=== PATIENT | female | born 1970 | race Caucasian/White ===

== ENCOUNTER 2019-04-05 14:57 | Outpatient (CLI) | payer BC, SELFPAY ==
--- NOTE | 2019-04-05 15:50 | DI.MAMMO_ITS ---
SYMPTOMS/DIAGNOSIS: SCREENING, Z12.31 BILATERAL SCREENING MAMMOGRAM: Mammograms were interpreted according to the usual protocol including computer analysis with CAD system, tomosynthesis and C view imaging. Comparison is made with 2018. The breasts are composed of heterogeneously dense fibroglandular tissue, breast density category C. No suspicious masses or suspicious microcalcifications are seen. There has been no significant change. IMPRESSION: Category 1, negative mammogram. Yearly screening mammography is recommended. [facility] ASSESSMENT OF FINDINGS: Negative. Category 1. Patient will receive a letter notifying them of these results. Bi-RADS category C. The breasts are heterogeneously dense, which may obscure small masses.
== END 2019-04-05 15:17 ==
PROVIDERS: PCP Nurse Practitioner Family; Visit Provider Nurse Practitioner Family
DX: Z12.31 Encounter for screening mammogram for malignant neoplasm of breast (principal)
CPT/HCPCS: 77063; 77067

== ENCOUNTER 2019-11-20 03:34 | Outpatient (CLI) | payer BC, SELFPAY ==
[2019-11-20 13:08] LABS: Anion Gap 10.2 mmol/L (3-11); BUN 16 mg/dL (7-18); CO2 27.8 mmol/L (21.0-32.0); CREATININE 0.81 mg/dL (0.55-1.02); Calcium 8.8 mg/dL (8.5-10.1); Calculated LDL 75 mg/dL (<100); Chloride 106 mmol/L (98-107); Cholesterol 172 mg/dL (<200); Glucose 93 mg/dL (74-106); HDL Cholesterol 87 mg/dL (40-60); Potassium 3.9 mmol/L (3.5-5.1); Sodium 144 mmol/L (136-145); Triglyceride 51 mg/dL (<150)
[2019-11-20 14:00] LABS: Hemoglobin A1C 6.1 % (3.8-5.6)
== END 2019-11-20 03:54 ==
PROVIDERS: PCP Nurse Practitioner Family; Visit Provider Nurse Practitioner Family
DX: Z00.00 Encounter for general adult medical examination without abnormal findings (principal); Z13.1 Encounter for screening for diabetes mellitus; Z13.220 Encounter for screening for lipoid disorders
CPT/HCPCS: 36415; 80048; 80061; 83036

== ENCOUNTER 2020-06-12 01:10 | Outpatient (CLI) | payer BC, SELFPAY ==
--- NOTE | 2020-06-12 08:00 | DI.MAMMO_ITS ---
EXAM: MAMMO SCREENING CLINICAL HISTORY: SCREENING, Z12.39 TECHNIQUE: Mammograms were interpreted according to the usual protocol including computer analysis w [place] CAD system, tomosynthesis and C-view imaging. COMPARISON: 2018 and 2019 FINDINGS: The breasts are composed of heterogeneously dense fibroglandular densities, Breast Density category C . No suspicious masses or suspicious microcalcifications are seen. No skin thickening or abnormal axillary lymph nodes are seen. There has been no significant change from prior exams. IMPRESSION: BI-RADS Category 1: Negative mammogram Yearly screening mammography is recommended. Breast Density - Category C, heterogeneously dense tissue which decreases the sensitivity of the mamm ogram. The mammogram demonstrates the patient's breast tissue is dense. Dense breast tissue is very common a nd is not abnormal but dense breast tissue can make it harder to find cancer on a mammogram. Also, de nse breast tissue may increase breast cancer risk. This information about the result of the mammogram report was provided to the patient to raise their awareness. Use this report when you speak with the patient about their risks for breast cancer, which includes their family history. At that time, you may recommend additional screening tests (Ultrasound or MRI) as they might be useful based on their r isk. A negative radiographic report should not delay biopsy if a dominant or clinically suspicious mass is present. Up to ten percent of cancers are not identified on mammography. A negative report may reinforce clinical impression. Adenosis and dense breasts may obscure an underlying neoplasm. False positive reports average 6 to 10%.
== END 2020-06-12 01:30 ==
PROVIDERS: PCP Nurse Practitioner Family; Visit Provider Nurse Practitioner Family
DX: Z12.31 Encounter for screening mammogram for malignant neoplasm of breast (principal); R92.2 Inconclusive mammogram
CPT/HCPCS: 77063; 77067

== ENCOUNTER 2020-08-09 03:43 | Outpatient (CLI) | payer BC, SELFPAY ==
[2020-08-09 12:56] LABS: Anion Gap 8.2 mmol/L (3-11); BUN 14 mg/dL (7-18); CO2 26.8 mmol/L (21.0-32.0); CREATININE 0.87 mg/dL (0.55-1.02); Calcium 8.9 mg/dL (8.5-10.1); Calculated LDL 69 mg/dL (<100); Chloride 105 mmol/L (98-107); Cholesterol 172 mg/dL (<200); Glucose 90 mg/dL (74-106); HDL Cholesterol 89 mg/dL (40-60); Potassium 3.7 mmol/L (3.5-5.1); Sodium 140 mmol/L (136-145); Triglyceride 73 mg/dL (<150)
[2020-08-09 13:02] LABS: Hemoglobin A1C 5.7 % (<5.7)
== END 2020-08-09 04:03 ==
PROVIDERS: PCP Nurse Practitioner Family; Visit Provider Nurse Practitioner Family
DX: R73.03 Prediabetes (principal)
CPT/HCPCS: 36415; 80048; 80061; 86341; 83036; 86337

== ENCOUNTER 2021-08-26 01:58 | Outpatient (CLI) | payer BC, SELFPAY ==
[2021-08-26 10:50] LABS: Hemoglobin A1C 5.6 % (<5.7)
[2021-08-26 10:52] LABS: Anion Gap 10.3 mmol/L (3-11); BUN 16 mg/dL (7-18); CO2 25.7 mmol/L (21.0-32.0); CREATININE 0.8 mg/dL (0.55-1.02); Calcium 9.2 mg/dL (8.5-10.1); Chloride 108 mmol/L (98-107); Glucose 95 mg/dL (74-106); Potassium 3.9 mmol/L (3.5-5.1); Sodium 144 mmol/L (136-145)
== END 2021-08-26 01:59 | disposition home or self-care (01) ==
PROVIDERS: PCP Nurse Practitioner Family; Visit Provider Nurse Practitioner Family
DX: R73.03 Prediabetes (principal)
CPT/HCPCS: 36415; 80048; 83036

== ENCOUNTER → 2022-07-17 00:57 | Outpatient (CLI) | payer BC, SELFPAY ==
--- OUTSIDE RECORDS SUMMARY | 2022-07-17 00:59 | XMS_ITS | Encounter Summary ---
:1970 Author Organization [facility] [place] [address] Care Team Providers Name Role Phone MykeKim mueller CHASIDY Primary Care Provider Reason for Referral Diagnostic Test (Routine) - Closed Specialty Diagnoses / Procedures Referred By Contact Refer red To Contact Radiology Diagnoses Adhesive capsulitis of right shoulder Stevan Martinez MD [facility] Rad Xray Procedures XR Fluoro Guided Joint Injection [facility] [address] [place] [address] [place] [address] [place] [address] Referral ID Status Reason Start Date Expiration Date Visits V isits Requested Authorized [id number] Closed Specialty 05/02/2021 11/02/2022 1 1 Service Requested Reason for Visit Diagnostic Test (Routine) - Closed Specialty Diagnoses / Procedures Referred By Contact Refer red To Contact Radiology Diagnoses Adhesive capsulitis of right shoulder Stevan Martinez MD [facility] Rad Xray Procedures XR Fluoro Guided Joint Injection [facility] [address] [place] [address] [place] [address] [place] [address] Referral ID Status Reason Start Date Expiration Date Visits V isits Requested Authorized [id number] Closed Specialty 05/02/2021 11/02/2022 1 1 Service Requested Encounter Details Date Type Department Care Team Description 05/15/2021 Hospital Encounter XRay at [facility] Jasper, Xavier B, Adhesive capsulitis [address] [facility] [address] [place] of right shoulder [facility] [address] [place] [phone] [place] [address] Social History Tobacco Use Types Packs/Day Years Used Date Never Smoker Smokeless Tobacco: Never Used Alcohol Use Standard Drinks/Week Comments Yes 4 (1 standard drink = 0.6 oz pure alcoho l) Sex Assigned at Date Recorded Female 02/11/2021 8:58 PM EDT documented as of this encounter Discharge Instructions Patient InstructionsAlice Rod - 05/15/2021 1:11 PM EDT Post Injection Patient Instructions You received an injection by DR. HATCH in the diagnostic section of radiology. Procedure: RIGHT SHOULDER INJECTION In the days following the injection: ??? Low intensity movement and exercise of the affected joint. ??? Avoid movements that worsen pain. During the first 48 hours following the injection you may experience mild discomfort at the injection site. If you experience pain or discomfort in the affected area, do the following: ??? Apply cold compress to the affected area. ??? If allowed by your physician, take an anti-inflammatory medication such as ibuprofen (example: Advil), Acetaminophen 9example: Tylenol) or Aspirin. IMPORTANT The risk of infection exists whenever the skin is punctured. The risk can be minimized by keeping the injection site clean. However, be aware of the following signs of an infection: ??? Redness and swelling at the injection site. ??? Increased pain. ??? Fever and/or chills. ??? Decreased range of motion in the joint near the injection site. If you experience any of the signs of infection listed above, telephone the diagnostic section of radiology at [phone]. documented in this encounter Medications at Time of Discharge Medication Sig Dispensed Refills Start Date End Date naproxen sodium (ANAPROX) Take 220 mg by mouth 0 220 mg Tablet 2 times daily (with meals). ibuprofen (Advil;Motrin) Take 200 mg by mouth 0 200 mg Tablet every 6 hours as needed for Pain. documented as of this encounter Plan of Treatment Not on filedocumented as of this encounter Procedures Procedure Name Priority Date/Time Associated Diagnosis Comme nts XR FLUORO INJECTION Routine 05/15/2021 1:30 PM Adhesive capsul itis Results for this DRAINAGE JOINT LG EDT of right shoulder proce dure are in RIGHT the results section. documented in this encounter Results XR Fluoro Guided Joint Injection Large Right (05/15/2021 1:30 PM EDT) Anatomical Region Laterality Modality Right Radio Fluoroscopy Specimen (Source) Anatomical Location Collection Method / Collectio n Time Received Time / Laterality Volume Impressions 05/15/2021 5:16 PM EDT Uneventful right shoulder injection under fluoroscopy. I, MARANDA HATCH MD, was present for the entire procedure and I performed the procedure. Thank you for letting us participate in the care of this patient. ??If you are a health care provider and have any questi ons regarding this report, please contact the number below. ??For patients who have questions please contact the health certified social workers in health care that requested your imaging first. ? Electronically signed by: Maranda Hatch MD, [facility] ([phone]), at 05/15/2021 5:16 PM Narrative 05/15/2021 5:16 PM EDT EXAMINATION: XR FLUORO GUIDED JOINT INJECTION LARGE RIGHT CLINICAL HISTORY: Glenohumeral injection for adhesive capsulitis, per ordering provider TECHNIQUE: After an extensive conversati on with the patient regarding risks and benefits, oral and written consent were obtained.? A pre- procedural time-out was performed, including review of the p atient's relevant electronic medical record and allergies, as per [facility] protoc ol. The patient was placed supine on the flu oroscopic table. The right anterior shoulder was prepped and draped in the u sual aseptic manner. 1% Lidocaine was used to achieve local anesthesia. Under fluoroscopic guidance, 25 gauge needle was advanced into the joint space. Small amount of air was injected to the document needle placement. A mixture of Ropivacaine and triamcinolone acetonide was injected. All needles removed at end of procedure. FINDINGS: 1. Small amount of injected air in the r ight glenohumeral joint space. 2. PAIN SCORE: ??Before: 3/10 ??After: 10/13 3. Fluoroscopy time: 0.03 min. 4. Medications: ??Lidocaine 1%- <5 ml, for subcutaneous anesthesia ??Ropivacaine HCL ??0.5% - 3 ml ??Depo-medrol - 40 mg COMPLICATIONS: None immediate. POST-PROCEDURE CARE: Information regardi ng monitor of infection and management of post- procedural were reviewed with tena decker. Procedure Note Maranda Hatch MD - 05/15/2021Formatt ing of this note might be different from the original. EXAMINATION: XR FLUORO GUIDED JOINT INJE CTION LARGE RIGHT CLINICAL HISTORY: Glenohumeral injection for adhesive capsulitis, per ordering provider TECHNIQUE: After an extensive conversati on with the patient regarding risks and benefits, oral and written consent were obtained.? A pre- procedural time-out was performed, including review of the tena decker's relevant electronic medical record and allergies, as per [facility] protoc ol. The patient was placed supine on the flu oroscopic table. The right anterior shoulder was prepped and draped in the u sual aseptic manner. 1% Lidocaine was used to achieve local anesthesia. Under fluoroscopic guidance, 25 gauge needle was advanced into the joint space. Small amount of air was injected to the document needle placement. A mixture of Ropivacaine and triamcinolone acetonide was injected. All needles removed at end of procedure. FINDINGS: 1. Small amount of injected air in the r ight glenohumeral joint space. 2. PAIN SCORE: Before: 3/10 After: 10/13 3. Fluoroscopy time: 0.03 min. 4. Medications: Lidocaine 1%- <5 ml, for subcutaneous a nesthesia Ropivacaine HCL 0.5% - 3 ml Depo-medrol - 40 mg COMPLICATIONS: None immediate. POST-PROCEDURE CARE: Information regardi ng monitor of infection and management of post- procedural were reviewed with tena decker. IMPRESSION Uneventful right shoulder injection unde r fluoroscopy. I, MARANDA HATCH MD, was present for the entire procedure and I performed the procedure. Thank you for letting us participate in the care of this patient. If you are a health care provider and have any questi ons regarding this report, please contact the number below. For patients w ho have questions please contact the health certified social workers in health care that requested your imaging first. Xavier Mayo MD IMG FLUORO ORDERABLES documented in this encounter Visit Diagnoses Diagnosis Adhesive capsulitis of right shoulder Adhesive capsulitis of shoulder documented in this encounter Administered Medications Inactive Administered Medications - up to 3 most recent administrations Medication Order MAR Action Action Date Dose Rate Site ROpivacaine (PF) 0.5% (5 mg/mL) 15 Given 05/15/2021 1:26 PM EDT mg with triamcinolone acetonide (40 mg/mL) 40 mg injection (Radiology Prep) Intra-articular, ONCE, 1 dose, On [place] 05/15/21 at 1330, For Radiology Use Only: Medium-Large Joint Injection documented in this encounter Care Teams Tile Machine Operator Relationship Specialty Start Date End Date Kim Day APRN PCP - General Family Medicine 02/18/[address] [place] [address] documented as of this encounter
--- OUTSIDE RECORDS SUMMARY | 2022-07-17 00:59 | XMS_ITS | Encounter Summary ---
:1970 Author Organization [facility] [place] [address] Care Team Providers Name Role Phone Kim Day APRN Primary Care Provider Encounter Details Date Type Department Care Team Description 09/11/2021 Orders Only [place]Ray at [facility] Minda Delgadillo PA [address] [place] [address] [place] [address] [facility] [phone] RADIOLOGY [place], [place] [address] (Wo rk) Social History Tobacco Use Types Packs/Day Years Used Date Never Smoker Smokeless Tobacco: Never Used Alcohol Use Standard Drinks/Week Comments Yes 4 (1 standard drink = 0.6 oz pure alcoho l) Sex Assigned at Date Recorded Female 02/11/2021 8:58 PM EDT documented as of this encounter Plan of Treatment Not on filedocumented as of this encounter Visit Diagnoses Not on filedocumented in this encounter Care Teams Loan Approver Relationship Specialty Start Date End Date Kim Day APRN PCP - General Family Medicine 02/18/[address] [place] [address] documented as of this encounter
--- OUTSIDE RECORDS SUMMARY | 2022-07-17 00:59 | XMS_ITS | Encounter Summary ---
:1970 Author Organization [place] [address] Care Team Providers Name Role Phone Kim Day APRN Primary Care Provider Reason for Referral Physical Therapy (Routine) - Specialty Diagnoses / Procedures Referred By Contact Refer red To Contact Physical Therapy Diagnoses Trochanteric bursitis of left hip Braulio Collazo MD [facility] [place] [address] Referral ID Status Reason Start Date Expiration Date Visits V isits Requested Authorized [id number] Evaluate and 02/18/2021 08/17/2021 12 12 Treat Reason for Visit Reason Comments Left Hip Pain Consultation (Routine) - Closed Specialty Diagnoses / Procedures Referred By Contact Refer red To Contact Orthopaedics Diagnoses left hip pain None [facility] Orthopaedics [address] None [place], [place] [phone] Phone: Fax: Referral ID Status Reason Start Date Expiration Date Visits Requ ested Visits Authorized [id number] Closed 02/04/2021 02/04/2022 1 1 Encounter Details Date Type Department Care Team Description 02/18/2021 Office Visit Orthopaedics at [facility] Xavier Mayo MD Trochanteric bursitis [facility] [place] [address] ORTHOPAEDIC [phone] SURGERY [place], [place] [address] Social History Tobacco Use Types Packs/Day Years Used Date Never Smoker Smokeless Tobacco: Never Used Alcohol Use Standard Drinks/Week Comments Yes 4 (1 standard drink = 0.6 oz pure alcoho l) Sex Assigned at Date Recorded Female 02/11/2021 8:58 PM EDT documented as of this encounter Last Filed Vital Signs Vital Sign Reading Time Taken Comments Blood Pressure 141/79 02/18/2021 1:51 PM EDT Pulse 91 02/18/2021 1:51 PM EDT Temperature - - Respiratory Rate - - Oxygen Saturation - - Inhaled Oxygen Concentration - - Weight 59.9 kg (132 lb) 02/18/2021 1:51 PM EDT Height 167.6 cm (5' 6) 02/18/2021 1:51 PM EDT Body Mass Index 21.31 02/18/2021 1:51 PM EDT documented in this encounter Progress Notes Braulio Collazo MD - 02/18/2021 2:00 PM EDT Chief complaint: left hip pain History of present illness: Nakia Laguerre is a 50 y.o. year-old healthy female who presents today for evaluation of her left hip pain. She notes the onset of mainly lateral left hip pain starting about 1 year ago. She has been evaluated and treated by local chiropractor along with some dry needling.Initially she had some sharp shooting pain as well as some limitation with internal and external rotation at the hip. The pain has improved overall, but she still has significant amount of discomfort after specific activities and pain with going up stairs and hiking. The pain does seem to be a little bit worse in the morning. There is some mild amount of groin pain intermittently, but is not significant and persistent. She denies any numbness or tingling. She has tried Advil with good relief after activities, but has not tried any regimented anti- inflammatory therapy. She has not tried any formal physical therapy. She has not had any injections. Past medical history: Patient Active Problem List Diagnosis Date Noted ??? Pain in left hip 02/18/2021 ??? Trochanteric bursitis of left hip 02/18/2021 History of blood clots or bleeding disorders: denies Denies history of cardiac, lung, kidney, liver diease or diabetes Medications: ??? ibuprofen (Advil;Motrin) 200 mg Tablet Allergies: Allergies Allergen Reactions ??? Penicillins Rash Social history: Social History Tobacco Use ??? Smoking status: Never Smoker ??? Smokeless tobacco: Never Used Substance Use Topics ??? 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 Lives in [place]. Review of systems: No chest pain or shortness of breath at baseline No fevers, night sweats or chills Vital signs: Temp: -- Physical Exam: Pleasant, cooperative, and in no acute distress. Breathing comfortably on room air. Regular rate and rhythm felt peripherally. Focused examination of the left lower extremity shows normal gait. There is hip flexion to about 125 degrees, internal rotation to 25 degrees, external rotation to about 45 to 50 degrees. There is no pain with internal impingement maneuvers. There is pain elicited with flexion and abduction localized over the lateral aspect of the proximal thigh. There is mild amountof pain with resisted abduction. There is significant amount of tenderness over the greater trochanter. Otherwise motor and sensory exam is benign. Palpable DP and PT pulse. Imaging: Plain radiographs of the left hip obtained today show normal-appearing hip joint without any evidence of osteoarthritis or osseous pathology. Assessment: 50 y.o. year-old female with left hip greater trochanteric bursitis. Plan: At this time I think is reasonable to pursue formal physical therapy for IT band stretching, gluteal activation, using any modalities as necessary. We also discussed using regimented course of nonsteroidal anti-inflammatories. We discussed specifically using Aleve, 2 tablets twice daily for the next 4 to 6 weeks. If she does not improve with regimented Aleve and physical therapy we could always pursue corticosteroid injection into the left hip greater trochanteric bursa. Follow up: As needed This plan was discussed with the patient and they are in agreement. All of the patient's questions were answered. The above dictation was made with voice recogonition software Xavier Mayo MD - 02/18/2021 2:00 PM EDT Attending Addendum: I personally saw and evaluated the patient as well and I agree with the assessment and plan as documented by the resident. If she fails to improve, would recommend trochanteric injection with an ISAIAS. Xavier Mayo M.D., M.S. documented in this encounter Plan of Treatment Scheduled Referrals Name Type Priority Associated Diagnoses Order S chedule Referral to Outpatient Referral Routine Trochanteric bursitis Ordered: Physical Therapy of left hip 02/18/2021 documented as of this encounter Visit Diagnoses Diagnosis Trochanteric bursitis of left hip Enthesopathy of hip region documented in this encounter Care Teams Home Attendant Relationship Specialty Start Date End Date Kim Day APRN PCP - General Family Medicine 02/18/[address] [place] [address] documented as of this encounter
--- OUTSIDE RECORDS SUMMARY | 2022-07-17 00:59 | XMS_ITS | Clinical Summary ---
:1970 Author Organization [facility] [place] [address] Care Team Providers Name Role Phone MykeNivia muellerlaide CHASIDY Primary Care Provider Allergies Active Allergy Reactions Severity Noted Date Comments Penicillins Rash 05/24/2020 Medications Medication Sig Dispensed Refills Start Date End Date Status ibuprofen Take 200 mg by 0 Activ e (Advil;Motrin) 200 mg mouth every 6 Tablet hours as needed for Pain. naproxen sodium Take 220 mg by 0 Active (ANAPROX) 220 mg mouth 2 times Tablet daily (with meals). Active Problems Problem Noted Date Adhesive capsulitis of right shoulder 05/02/2021 Pain in left hip 02/18/2021 Trochanteric bursitis of left hip 02/18/2021 Immunizations Name Administration Dates Next Due David Covid-19 Vaccine 01/03/2021 Moderna Covid-19 (Milling Machine Operator Gear 100mcg) Vaccine 07/30/2021 Social History Tobacco Use Types Packs/Day Years Used Date Never Smoker Smokeless Tobacco: Never Used Alcohol Use Standard Drinks/Week Comments Yes 4 (1 standard drink = 0.6 oz pure alcoho l) Sex Assigned at Date Recorded Female 02/11/2021 8:58 PM EDT Last Filed Vital Signs Vital Sign Reading Time Taken Comments Blood Pressure 138/66 05/02/2021 3:23 PM EDT Pulse 78 05/02/2021 3:23 PM EDT Temperature - - Respiratory Rate - - Oxygen Saturation - - Inhaled Oxygen Concentration - - Weight 59.9 kg (132 lb) 05/06/2021 4:32 PM EDT Height 167.6 cm (5' 6) 05/06/2021 4:32 PM EDT Body Mass Index 21.31 05/06/2021 4:32 PM EDT Plan of Treatment Health Maintenance Due Date Last Done Comments HIV screen 1988 Hepatitis C Screening 1988 Tdap adult 1989 Tetanus vaccine 1989 HPV test 2000 PAP Smear 2000 Breast Cancer Share Decision Needed 2010 Colonoscopy 2015 Breast Cancer screening 2020 Zoster vaccine (1 of 2) 2020 Covid-19 Vaccine (3 - Booster for David 09/24/20212020, 01/03/2021 series) Influenza (Flu) vaccine (1 of 1 - 2022 Influenza standard series) Insurance Payer Benefit Plan / Subscriber ID Effective Dates Phone Addre ss Type Group [facility] [id number] 2020-[place] [phone] [address] [facility] PPO t 3 [facility] [id number] Care Teams Box Attacher Relationship Specialty Start Date End Date Kim Day APRN PCP - General Family Medicine 02/18/[address] [place], [place] [address]
--- OUTSIDE RECORDS SUMMARY | 2022-07-17 00:59 | XMS_ITS | Encounter Summary ---
:1970 Author Organization [facility] [place] [address] Care Team Providers Name Role Phone Kim Day APRN Primary Care Provider Encounter Details Date Type Department Care Team Description 02/18/2021 Hospital Encounter XRay at [facility] [place] Mayo MD Left hip pain [address] [place] [phone] ORTHOPAEDIC SURG [place], [place] [address] (Wo rk) Social History Tobacco Use Types Packs/Day Years Used Date Never Smoker Smokeless Tobacco: Never Used Alcohol Use Standard Drinks/Week Comments Yes 4 (1 standard drink = 0.6 oz pure alcoho l) Sex Assigned at Date Recorded Female 02/11/2021 8:58 PM EDT documented as of this encounter Medications at Time of Discharge Medication Sig Dispensed Refills Start Date End Date ibuprofen (Advil;Motrin) Take 200 mg by mouth 0 200 mg Tablet every 6 hours as needed for Pain. documented as of this encounter Plan of Treatment Not on filedocumented as of this encounter Procedures Procedure Name Priority Date/Time Associated Diagnosis Comme nts XR PELVIS AND HIP 2 Routine 02/18/2021 1:41 PM Left hip pain R esults for this VIEWS LEFT EDT procedure are i n the results section. documented in this encounter Results XR Pelvis and Hip 2 Views Left (02/18/2021 1:41 PM EDT) Anatomical Region Laterality Modality Pelvis, Hip Left Digital Radiography Specimen (Source) Anatomical Location Collection Method / Collectio n Time Received Time / Laterality Volume Impressions 02/18/2021 4:42 PM EDT 1. ??Preserved hip joint spaces with tiny marginal osteophytes. 2. ??Normal morphology of anterior femor al head neck junction. No overgrowth of anterior acetabular wall. Thank you for letting us participate in the care of this patient. ??If you are a health care provider and have any questi ons regarding this report, please contact the number below. ??For patients who have questions please contact the health health care law specialist that requested your imaging first. ? Electronically signed by: Maranda Lou MD, [facility] ([phone]), at 02/18/2021 4:42 PM Narrative 02/18/2021 4:42 PM EDT EXAMINATION: XR PELVIS AND HIP 2 VIEWS LEFT CLINICAL HISTORY: left hip pain, , en tered by ordering service TECHNIQUE: AP pelvis and lateral and Dun n view of left hip. 3 views COMPARISON: none FINDINGS: Bones No acute fracture. Hip Joints Preserved hip joint spaces. Bilateral sm all marginal osteophytes. Normal morphology of the femoral head ne ck junction. The alpha angle is 55 degrees, at upper limits of normal. No o vergrowth of the anterior acetabular wall. SI joints-symmetric joint spaces and no ankylosis or erosions. Soft tissues No soft tissue calcifications. Procedure Note Maranda Lou MD - 02/18/2021Formatt ing of this note might be different from the original. EXAMINATION: XR PELVIS AND HIP 2 VIEWS L EFT CLINICAL HISTORY: left hip pain, , en tered by ordering service TECHNIQUE: AP pelvis and lateral and Dun n view of left hip. 3 views COMPARISON: none FINDINGS: Bones No acute fracture. Hip Joints Preserved hip joint spaces. Bilateral sm all marginal osteophytes. Normal morphology of the femoral head ne ck junction. The alpha angle is 55 degrees, at upper limits of normal. No o vergrowth of the anterior acetabular wall. SI joints-symmetric joint spaces and no ankylosis or erosions. Soft tissues No soft tissue calcifications. IMPRESSION 1. Preserved hip joint spaces with tiny marginal osteophytes. 2. Normal morphology of anterior femoral head neck junction. No overgrowth of anterior acetabular wall. Thank you for letting us participate in the care of this patient. If you are a health care provider and have any questi ons regarding this report, please contact the number below. For patients w ho have questions please contact the health health care law specialist that requested your imaging first. Electronically signed by: Maranda Lou MD, [facility] ([phone]), at 02/18/2021 4:42 PM Xavier Mayo MD IMG DX ORDERABLES documented in this encounter Visit Diagnoses Diagnosis Left hip pain Pain in joint, pelvic region and thigh documented in this encounter Care Teams Central Supply Manager Relationship Specialty Start Date End Date Kim Day APRN PCP - General Family Medicine 02/18/[address] [place] [address] documented as of this encounter
--- OUTSIDE RECORDS SUMMARY | 2022-07-17 00:59 | XMS_ITS | Encounter Summary ---
:1970 Author Organization [facility] [place] [address] Care Team Providers Name Role Phone Kim Day APRN Primary Care Provider Reason for Referral Diagnostic Test (Routine) - Closed Specialty Diagnoses / Procedures Referred By Contact Refer red To Contact Radiology Diagnoses Adhesive capsulitis of right shoulder Stevan Martinez MD [facility] Rad Xray Procedures XR Fluoro Guided Joint Injection [facility] [address] [place] [address] [place] [address] [place] [address] Referral ID Status Reason Start Date Expiration Date Visits V isits Requested Authorized [id number] Closed Specialty 05/02/2021 11/02/2022 1 1 Service Requested Reason for Visit Reason Comments Right Shoulder Pain Consultation (Routine) - Closed Specialty Diagnoses / Procedures Referred By Contact Refer red To Contact Orthopaedics Diagnoses Right Shoulder Pain None [facility] [address] [place], [place] [phone] Phone: Fax: Referral ID Status Reason Start Date Expiration Date Visits Requ ested Visits Authorized [id number] Closed 04/16/2021 04/16/2022 1 1 Encounter Details Date Type Department Care Team Description 05/02/2021 Office Visit Orthopaedics at [facility] Xavier Mayo MD Adhesive capsulitis [facility] [place] [phone] ORTHOPAEDIC [phone] [place], [place] [address] Social History Tobacco Use Types Packs/Day Years [...] - - Weight 59.9 kg (132 lb) 05/02/2021 3:23 PM EDT Height 167.6 cm (5' 6) 05/02/2021 3:23 PM EDT Body Mass Index 21.31 05/02/2021 3:23 PM EDT documented in this encounter Progress Notes Stevan Martinez MD - 05/02/2021 3:20 PM EDT Chief complaint: Right shoulder pain and stiffness History of present illness: Nakia Laguerre is a 50 y.o. female Who presents with a primary complaint of right shoulder pain. She has been having an increase in pain and decrease in range of motion over the past month. She dealt with a contralateral shoulder adhesive capsulitis approximately 5 years ago she states that the symptoms were similar. She has been seeing a physical therapist and working onshoulder strengthening. She has not had an injection. Past medical history: Patient Active Problem List Diagnosis Date Noted ??? Adhesive capsulitis of right shoulder 05/02/2021 ??? Pain in left hip 02/18/2021 ??? Trochanteric bursitis of left hip 02/18/2021 Medications: ??? naproxen sodium (ANAPROX) 220 mg Tablet ??? ibuprofen (Advil;Motrin) 200 mg Tablet Allergies: Allergies Allergen Reactions ??? Penicillins Rash Vital signs: BP 138/66 Pulse 78 Ht 167.6 cm (5' 6) Wt 59.9 kg (132 lb) BMI 21.31 kg/m?? Physical Exam: No Apparent distress Well-appearing woman Right shoulder: She has intact skin. No erythema or scarring. Muscle bulk symmetric and without atrophy She has total active elevation of approximately 120 degrees, external rotation to 30 degrees, internal rotation to the sacrum. Active elevation is equal to passive range of motion. She has pain in range of motion. She has 5/5 strength in rotator cuff musculature. Assessment: 50 y.o. year-old female with likely adhesive capsulitis Plan: The nature of the problem and the individual situation was discussed at length with the patient. Consistent with treatment of the primary diagnosis, we have recommended intra-articular glenohumeral joint steroid injection. We discussed the natural history of adhesive capsulitis and various treatment options and modalities. We generally recommend conservative management as condition with intra-articular steroid injection to help speed the process or cycle from the freezing to the frozen andthawing phases. This is accompanied by physical therapy focused on range of motion. She understands the natural history, treatment options, and would like to move forward with a steroid injection I think that is ibanez. Follow up: 3 months or as needed This plan was discussed with the patient and they are in agreement. All of the patient's questions were answered. The above dictation was made with voice recognition software Xavier Mayo MD - 05/02/2021 3:20 PM EDT Attending Addendum: I personally saw and evaluated the patient as well and I agree with the assessment and plan as documented by the resident. Xavier Mayo M.D., M.S. documented in this encounter Plan of Treatment Not on filedocumented as of this encounter Results XR Fluoro Guided Joint [...] who have questions please contact the health complex care nurse practitioner that requested your imaging first. ? Electronically signed by: Maranda Hatch MD, [facility] ([phone]), at 05/15/2021 5:16 PM Narrative 05/15/2021 5:16 [...] electronic medical record and allergies, as per [facility] protoc ol. The patient was placed supine [...] electronic medical record and allergies, as per [facility] protoc ol. The patient was placed supine [...] space. 2. PAIN SCORE: Before: 3/10 After: 1/10 3. Fluoroscopy time: 0.03 min. 4. Medications: [...] ho have questions please contact the health complex care nurse practitioner that requested your imaging first. Electronically signed by: Maranda Hatch MD, [facility] ([phone]), at 05/15/2021 5:16 PM Xavier Mayo MD IMG FLUORO ORDERABLES documented in this encounter Visit Diagnoses Diagnosis Adhesive capsulitis of right shoulder Adhesive capsulitis of shoulder Adhesive capsulitis of right shoulder Adhesive capsulitis of shoulder documented in this encounter Care Teams Adzing And Boring Machine Helper Relationship Specialty Start Date End Date Adjovu, Kim, SEAT INSTALLER PCP - General Family Medicine 02/18/[address] [place] [address] documented as of this encounter
--- NOTE | 2022-07-17 08:39 | DI.MAMMO_ITS ---
Exam(s) MAMMO SCREENING EXAM: MAMMO SCREENING CLINICAL HISTORY: screening Z12.39 TECHNIQUE: Bilateral full field digital CC and MLO mammographic images were obtained with 3D tomosyn thesis and utilizing computer aided detection (CAD). COMPARISON: Available for comparison. FINDINGS: Masses/Architectural Distortion: None seen. Microcalcifications: No suspicious pleomorphic-type are seen. Skin Thickening/Nipple Retraction: None. IMPRESSION: 1. No significant interval change with no specific features of malignancy noted. 2. Unless there is more urgent need, screening mammography is recommended, as per [employer] guidelines. BI-RADS Category 1 - Negative Breast Density - Category C - Heterogeneously dense Breast density category C or D implies that the patient has dense breast tissue. Dense breast tissue is very common and is not abnormal but dense breast tissue can make it harder to find cancer on a ma mmogram. Also, dense breast tissue may increase their breast cancer risk. This information about the result of the mammogram report was provided to the patient to raise their awareness. Use this report when you speak with the patient about their risks for breast cancer, which includes their family hist ory. At that time, you may recommend for more screening tests (Ultrasound or MRI) as they might be us eful based on their risk. A negative radiographic report should not delay biopsy if a dominant or clinically suspicious mass is present. Up to ten percent of cancers are not identified on mammography. A negative report may reinforce clinical impression. Adenosis and dense breasts may obscure an underlying neoplasm. False positive reports average 6 to 10%. Patient will receive a letter notifying them of these results.
== END ==
PROVIDERS: PCP Nurse Practitioner Family; Visit Provider Nurse Practitioner Family
DX: Z12.31 Encounter for screening mammogram for malignant neoplasm of breast (principal); R92.8 Other abnormal and inconclusive findings on diagnostic imaging of breast
CPT/HCPCS: 77063; 77067